=== PATIENT | female | born 1980 | race Caucasian/White ===

== ENCOUNTER 2020-06-23 14:17 | Emergency (ER) | payer MEDICARE, OTHER ==
[~2020-06-23 14:17] MED LIST: PERCOCET 5-3251 EACH PO
[2020-06-23 15:30] LABS: HEMOGLOBIN 14.2 gm/dl (12.3-15.3); RED BLOOD COUNT 4.74 M/UL (4.00-5.10); WHITE BLOOD COUNT 5.7 K/UL (4.5-11.0)
[2020-06-23] MEDS ORDERED: OMNICEF 300 MG300 MG PO (18:10)
== END 2020-06-23 18:25 | disposition home or self-care (01) ==
LOC: ER1 14:17
PROVIDERS: Emergency Medicine
DX: R10.9 Unspecified abdominal pain (principal); E11.9 Type 2 diabetes mellitus without complications; I10 Essential (primary) hypertension; E78.5 Hyperlipidemia, unspecified; F17.200 Nicotine dependence, unspecified, uncomplicated
CPT/HCPCS: 80053; 81001; 83690; 84703; 85025; 87086; 96374; 96375; 99284; J2270; J2405; Q9967

== ENCOUNTER 2020-12-19 14:24 | Emergency (ER) | payer MEDICARE ==
[~2020-12-19 14:24] MED LIST changes: +OMNICEF 300 MG300 MG PO
[2020-12-19 15:28] LABS: HEMOGLOBIN 14.2 gm/dl (12.3-15.3); RED BLOOD COUNT 4.64 M/UL (4.00-5.10); WHITE BLOOD COUNT 7.3 K/UL (4.5-11.0)
[2020-12-19 15:48] LABS: BUN/CREATININE RATIO 18 (0-10)
[2020-12-19] MEDS ORDERED: PROAIR HFA8.5 GM INH (21:43)
== END 2020-12-19 21:55 | disposition home or self-care (01) ==
LOC: ER1 14:24
PROVIDERS: Nurse Practitioner
DX: R06.02 Shortness of breath (principal); E11.9 Type 2 diabetes mellitus without complications; I10 Essential (primary) hypertension; Z20.822 Contact with and (suspected) exposure to COVID-19
CPT/HCPCS: 36600; 71045; 71275; 80053; 81001; 82550; 82553; 82803; 83874; 84484; 85025; 85379; 93005; 96374; 96375; 99285; J1885; Q0177; Q9967; U0002

== ENCOUNTER 2021-01-19 12:04 | Emergency (ER) | payer MEDICARE, OTHER ==
[~2021-01-19 12:04] MED LIST changes: +PROAIR HFA8.5 GM INH
[2021-01-19] MEDS ORDERED: IBUPROFEN600 MG PO (14:11)
== END 2021-01-19 14:40 | disposition home or self-care (01) ==
LOC: ER1 12:04
DX: S63.501A Unspecified sprain of right wrist, initial encounter (principal); S60.221A Contusion of right hand, initial encounter; E11.9 Type 2 diabetes mellitus without complications; I10 Essential (primary) hypertension; E78.5 Hyperlipidemia, unspecified; W19.XXXA Unspecified fall, initial encounter
CPT/HCPCS: 73110; 73130; 82962; 99283

== ENCOUNTER → 2021-03-08 | Outpatient (CLI) | payer MEDICARE ==
[~2021-03-08] MED LIST changes: +IBUPROFEN600 MG PO
[2021-03-08 15:20] LABS: HEMOGLOBIN 14.2 gm/dl (12.3-15.3); RED BLOOD COUNT 4.79 M/UL (4.00-5.10); WHITE BLOOD COUNT 6.2 K/UL (4.5-11.0)
[2021-03-08 15:46] LABS: BUN/CREATININE RATIO 10 (0-10)
== END ==
LOC: LAB 14:39
PROVIDERS: Internal Medicine
DX: E11.42 Type 2 diabetes mellitus with diabetic polyneuropathy (principal); E53.9 Vitamin B deficiency, unspecified; E55.9 Vitamin D deficiency, unspecified; E78.49 Other hyperlipidemia; I10 Essential (primary) hypertension
CPT/HCPCS: 36415; 71046; 80053; 80061; 83036; 85025